=== PATIENT | male | born 1955 | race Caucasian/White ===

== ENCOUNTER 2023-12-26 12:51 | Day surgery (SDC) | payer OTHER ==
[2023-12-22 15:00] LABS: PT Prothrombin Time 10.8 SECONDS (9.5-12.5); Protime INR 0.98
[2023-12-22 15:02] LABS: Absolute Basophils 0.1 K/uL (0-0.5); Absolute Eosinophils 0.1 K/uL (0-0.5); Absolute Lymphocytes (CBC) 1.1 K/uL (0.7-4.9); Absolute Monocytes 0.5 K/uL (0.1-1.3); Absolute Neutrophil 5.5 K/uL (1.8-8.0); Basophils % 0.9 % (0-1.3); Eosinophils % 1.4 % (0-4.4); Hematocrit 44.1 % (39.6-49.0); Hemoglobin 14.9 g/dL (13.6-17.9); Lymphocytes % 15.3 % (15.3-44.8); MCH 34.9 pg (27.0-35.0); MCHC 33.9 g/dL (32.0-36.0); MCV 103.1 fL (80-100); MPV 9.5 fL (7.6-11.3); Monocytes % 7.3 % (3.3-12.3); Neutrophils % 75.1 % (41.7-73.7); Nucleated Red Blood Cells % 0.1 % (0-0); Platelets 222 thou/uL (152-406); RBC Red Blood Cell Count 4.27 M/uL (4.33-5.43); Red Cell Distribution Width 14.2 % (12.1-15.2)
[2023-12-22 15:13] LABS: Anion Gap 9.2 mEq/L (5.0-15.0); Potassium 4.2 mEq/L (3.5-5.1)
--- NOTE | 2023-12-22 20:18 | RAD REPORT ---
EXAM DESCRIPTION: RAD - Chest Pa And Lat (2 Views) - 12/22/2023 2:58 pm CLINICAL HISTORY: pre op for surgery. Hypertension COMPARISON: No Comparisons> TECHNIQUE: PA and lateral views of the chest were obtained. FINDINGS: The lungs are clear. Heart size is normal and central vasculature is within normal limits. No pleural effusion or pneumothorax seen. No acute bony finding noted. IMPRESSION: No acute cardiopulmonary process.
--- NOTE | 2023-12-25 14:26 | EKG ---
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
[2023-12-26] MEDS ORDERED: propofoL 200 MG/20 ML VIAL IV ONE (14:34)
[2023-12-26] MEDS ORDERED: LIDOCAINE 1% MPF 5 ML VIAL ONE (14:34)
[2023-12-26] MEDS ORDERED: MIDAZOLAM HCL 2 MG/2 ML INJ ONE (14:35)
[2023-12-26] MEDS ORDERED: FENTANYL CITR 100 MCG/2 ML ONE (14:35)
[2023-12-26] MEDS ORDERED: ROCURONIUM 50 MG/5 ML VIAL IV ONE (15:22)
[2023-12-26] MEDS ORDERED: EPHEDRINE SULF 50 MG/ML VIAL ONE (16:09)
[2023-12-26] MEDS ORDERED: NS 0.9% VIAL 10 ML ONE (16:12)
[2023-12-26] MEDS ORDERED: Ringers Lactate 1,000 ML IV ONE (16:55)
[2023-12-26] MEDS: PHENAZOPYRIDINE 100MG TAB PO ONE (17:10)
--- NOTE | 2023-12-26 17:11 | RAD REPORT ---
EXAM DESCRIPTION: RAD - Urethrocystogrphy Retrograde - 12/26/2023 5:06 pm CLINICAL HISTORY: LEFT STENT COMPARISON: No comparisons FINDINGS: Total fluoro time: 0.14 minutes
[2023-12-26] MEDS ORDERED: HYDROCODONE/APAP 5/325 MG TAB PO PRN (17:49)
[2023-12-26 18:11] VITALS: BP 143/83; O2SAT 97
[2023-12-26] MEDS ORDERED: PHENAZOPYRIDINE 100MG TAB PO ONE (18:21)
--- NOTE | 2023-12-26 21:31 | OP ---
Surgeon: REINA HORTON Preoperative Diagnoses: 1.Gross hematuria. 2.14 mm left ureterolithiasis. Postoperative Diagnoses: 1.Gross hematuria. 2.14 mm left ureterolithiasis. Principal Procedures: 1.Cystoscopy. 2.Left retrograde pyelography. 3.Left ureteroscopy with pyeloscopy and laser lithotripsy of proximal ureteral calculus displaced in to the renal pelvis. 4.Left ureteral stent placement. Indication For Procedure: Mr. Pascual presented to the [facility] complaining of hematospermia and some gross hematuria. He underwent evaluation including a CT urography, which revealed the presence of a 14 mm proximal obstructing ureteral calculus. He was counseled on the need for timely managemen t of the obstruction, since we did not know how long it had been present, and given the size of the s tone, to prevent further deterioration of his renal function. He presents today for left ureteral st ent placement with the possibility for ureteroscopy and laser lithotripsy. Procedure In Detail: The patient was consented in the preoperative holding area before being transfe rred to the operative suite where general anesthesia was induced. He was given Ancef 2 g IV antimicr obial prophylaxis, and pneumo boots were provided for DVT prophylaxis. He was placed in the lithotom y position, padded and secured to the table appropriately. His genitalia were prepped with Hibiclens and he was draped in standard fashion. The case was begun using a 22-Lebanese rigid cystoscope to tra verse the urethra and enter his bladder with ease. The bladder was surveyed in its entirety, and the re were stone fragments noted dependently within the bladder, but no papillary mucosal lesions were n oted. The detrusor was mildly trabeculated, and on survey of the prostatic fossa, there was some mil d lateral lobar hypertrophy with an elevated median bar, potentially causing a degree of obstruction. I thus identified the left ureteral orifice, which was in orthotopic position and cannulated it usi ng the tip of a 5-Lebanese ureteral access catheter. A retrograde pyelogram was then performed. Left retrograde pyelography: Using a 70:30 mixture of Omnipaque and saline, contrast was injected vi a the lumen of the 5-Lebanese ureteral access catheter and did propagate up the distal into the mid and proximal ureter before entering the renal pelvis and delineating the pelvis and calyces with only si gns of mild pelvocaliectasis. The calculus evident on CT was radiolucent to fluoroscopic imagery. T here was, however, a subtle filling defect that was evident after injection of contrast suggesting th e calculus may be have been displaced out of the UPJ and more centrally within the pelvis. As a resu lt, I passed a Sensor wire via the 5-Lebanese ureteral access catheter and was able to navigate it into the upper pole calyx where it coiled fluoroscopically. I removed the 5-Lebanese ureteral access linus ter and passed over the indwelling Sensor wire a dual-lumen catheter all the way into his renal pelvi s. I then passed a Bentson guidewire via the second lumen of the dual-lumen catheter before removing the dual-lumen catheter and passing over the Bentson guidewire, leaving the Sensor wire as a safety wire outside and I passed a 12 x 14-Lebanese ureteral access sheath, which I was able to navigate all t he way into his proximal ureter. I then navigated the flexible ureteroscope over the Bentson guidewi re and was able to pass it all the way into the renal pelvis where the stone was immediately visualiz ed. I thus utilized a 272 nm laser fiber at power setting of 0.8 joules and 15 hertz initially to be gin to fragment the stone. I eventually increased the power to 1 joule and 15 hertz to continue frag mentation. Because of the significant size of the stone and the fact that it was of a type that esse ntially gave a lot of dust associated with the laser fragmentation, visualization was somewhat challe nging; however, I was able to continue to fragment the stone with some additional effort taken, and c ontinued to fragment it until the entirety of the calculus was largely disrupted. I then continued t o mariya those fragments that were still larger than the laser fiber tip into the upper pole calyx whe re I continued to fragment the pieces of the stone ultimately until most of the fragments were at ju st 1 mm or smaller in size. There was active hematuria throughout from the stone bouncing around on the inside of the mucosa and causing a degree of bleeding, which also contributed to the decreased vi sibility. However, after extensive laser fragmentation performed with a power ultimately increased t o 1.2 joules and 25 hertz, I was able, after an extensive period of time, to essentially confirm that most of the stone had been completely fragmented into dust that was 1 mm or smaller in size. I thus concluded the laser lithotripsy and removed the ureteroscope before then collecting some of the ston e dust material that had emanated from the ureteral access sheath, as there was significant dust mate rial. I then back-loaded the cystoscope over the indwelling safety wire and passed a 6-Lebanese x 26 c m double-J ureteral stent successfully into his upper pole with a coil observed fluoroscopically ther e. A coil was formed cystoscopically visible in the bladder, and I decompressed his bladder of fluid and urine before removing the cystoscope. He was then taken out of the lithotomy position, awakened from general anesthesia, transferred to a stretcher, and then transferred to the recovery room in go od condition. Complications: None. Discharge Disposition: Since the stone is not radio-opaque and given the extensive degree of stone b urden with laser lithotripsy performed on an initial ureteroscopic event, I would like for the patien t to get a CT scan without contrast of the abdomen only prior to followup within the next 3-6 weeks, where if adequate stone fragmentation has been completed, we will plan cystoscopy and left ureteral s tent extraction in the office. If inadequate fragmentation or significant residual stone burden pres ent, followup repeat ureteroscopic intervention with laser lithotripsy may be required. SEDA/DAYA Voice ID: [id number] Report ID: [id number]
== END 2023-12-26 18:47 | disposition home or self-care (01) ==
LOC: OR 12:51
PROVIDERS: ATTEND Urology
PROC: 0T778DZ Dilation of Left Ureter with Intraluminal Device, Via Natural or Artificial Opening Endoscopic (ICD-10-PCS; 2023-12-26)
PROC: 0TF78ZZ Fragmentation in Left Ureter, Via Natural or Artificial Opening Endoscopic (ICD-10-PCS; principal; 2023-12-26 14:30)
DX: N20.1 Calculus of ureter (principal); N13.30 Unspecified hydronephrosis; R31.0 Gross hematuria; I10 Essential (primary) hypertension
CPT/HCPCS: 93005; 85025; 87086; 80048; 36415; 85610; 71046; 74450; 51610; 52356; A4216; J2704; J2001; J2250; J3010; J7120; 82360; 87088; 88300

== ENCOUNTER 2024-04-04 06:50 | Day surgery (SDC) | payer OTHER ==
[2024-03-19 12:00] LABS: Absolute Basophils 0.1 K/uL (0-0.5); Absolute Eosinophils 0.1 K/uL (0-0.5); Absolute Lymphocytes (CBC) 0.8 K/uL (0.7-4.9); Absolute Monocytes 0.4 K/uL (0.1-1.3); Absolute Neutrophil 4.7 K/uL (1.8-8.0); Basophils % 0.8 % (0-1.3); Eosinophils % 1.2 % (0-4.4); Hematocrit 47.6 % (39.6-49.0); Hemoglobin 15.7 g/dL (13.6-17.9); Lymphocytes % 13.9 % (15.3-44.8); MCH 33.6 pg (27.0-35.0); MPV 9.4 fL (7.6-11.3); Monocytes % 7.3 % (3.3-12.3); Neutrophils % 76.8 % (41.7-73.7); Nucleated Red Blood Cells % 0.1 % (0-0); Platelets 184 thou/uL (152-406); RBC Red Blood Cell Count 4.67 M/uL (4.33-5.43); Red Cell Distribution Width 15.2 % (12.1-15.2)
[2024-03-19 12:12] LABS: Anion Gap 6.8 mEq/L (5.0-15.0); Potassium 4.8 mEq/L (3.5-5.1)
[2024-03-19 12:33] LABS: PT Prothrombin Time 10.6 SECONDS (9.5-12.5); Protime INR 0.96
[2024-04-04] MEDS: Ringers Lactate 1,000 ML IV ONE (07:05)
[2024-04-04] MEDS ORDERED: propofoL 200 MG/20 ML VIAL IV ONE (08:18)
[2024-04-04] MEDS ORDERED: LIDOCAINE 1% MPF 5 ML VIAL ONE (08:19)
[2024-04-04] MEDS ORDERED: FENTANYL CITR 100 MCG/2 ML ONE (08:19)
[2024-04-04] MEDS ORDERED: MIDAZOLAM HCL 2 MG/2 ML INJ ONE (08:19)
[2024-04-04] MEDS: Gentamicin Inj 160 MG in NA CHLORIDE 0.9% 100 ML IV SCH (09:09)
[2024-04-04] MEDS ORDERED: NS 0.9% VIAL 30 ML ONE (09:11)
[2024-04-04] MEDS: AMPICILLIN SODIUM 2 GM/VIAL VIAL ONE (09:13)
[2024-04-04] MEDS ORDERED: Phenylephrine HCl 10 MG/ML 1 ML VIAL ONE (09:31)
--- NOTE | 2024-04-04 10:21 | RAD REPORT ---
EXAM DESCRIPTION: RAD - Urethrocystogrphy Retrograde - 04/04/2024 10:11 am CLINICAL HISTORY: STENT PLACEMENT COMPARISON: Urethrocystogrphy Retrograde dated 12/26/2023 FINDINGS: Total fluoro time: 34 seconds
[2024-04-04 10:38] VITALS: O2SAT 97
[2024-04-04] MEDS ORDERED: PHENAZOPYRIDINE 100MG TAB PO ONE (11:06)
[2024-04-04] MEDS ORDERED: HYDROCODONE/APAP 5/325 MG TAB ONE (11:06)
[2024-04-04] MEDS: HYDROCODONE/APAP 5/325 MG TAB PO PRN (11:09)
[2024-04-04] MEDS: PHENAZOPYRIDINE 100MG TAB PO ONE (11:09)
--- NOTE | 2024-04-04 12:08 | OP ---
Surgeon: REINA HORTON Preoperative Diagnoses: 1.Left hydronephrosis. 2.Left nephrolithiasis. 3.History of 14 mm left ureteropelvic junction calculus obstruction with gross hematuria. Postoperative Diagnoses: 1.Left pelvocaliectasis. 2.Left nephrolithiasis. 3.Bladder calculi. 4.No significant ureteral stricture disease observed. Principal Procedures: 1.Cystoscopy with removal of bladder calculi fragments. 2.Left retrograde pyelography. 3.Left ureteroscopy with laser lithotripsy. 4.Left ureteroscopic stone dust washout and removal. 5.Left ureteral tethered 7-Bruneian stent placement. Indication For Procedure: Mr. Pascual presented initially to the Urology Clinic with gross hematuria. He underwent evaluation including a CT urogram and cystoscopy and was found to have a 14 mm calculus obstructing at the UPJ causing hydronephrosis. That stone had been present for an unknown period of time, and after I completed ureteroscopy with laser lithotripsy of that stone successfully, I removed the stent and had him follow up intervally with an ultrasound to ensure absence of hydronephrosis in dicative of stricture disease. Unfortunately, the ultrasound did suggest a degree of hydronephrosis present as well as a calculus still present within the kidney; so, I recommended operative evaluation to rule out stricture disease and to manage it if present, as well as, to eliminate any residual steve al calculi. Procedure In Detail: The patient was consented in the preoperative holding area before being transfe rred to the operative suite where general anesthesia was induced. He was given ampicillin 2 g and ge ntamicin 160 mg IV antimicrobial prophylaxis, and pneumo boots were provided for DVT prophylaxis. He was placed in the lithotomy position, padded and secured to the table appropriately. His genitalia were prepped with Hibiclens and he was draped in standard fashion. The case was begun using a 22-J[facility]on [facility] rigid cystoscope to traverse the urethra and into the bladder with ease. There was some slight m embranous urethral stricture disease that I was able to dilate and surpass using the cystoscope. Upo n entry into the bladder, I noted a large degree of tiny, tiny calculus fragments, which I used the c ystoscope to remove under direct vision and sent for chemical analysis. I then cannulated the left u reteral orifice using a 5-Bruneian ureteral access catheter. Left retrograde pyelography: Using a 70:30 mixture of Omnipaque and saline, contrast was injected vi a the lumen of the 5-Bruneian ureteral access catheter and did propagate up the distal into the mid and proximal ureter where it entered the renal pelvis and delineated the calyces. While there was some mild pelvocaliectasis, no significant area of stricture disease was identified. There was some sligh t narrowing at the UPJ of uncertain significance. As a result, I passed a Sensor wire via the 5-Bruneian ureteral access catheter and coiled it within th e upper pole of the left kidney. I then utilized a dual-lumen catheter to pass over the Sensor wire into the mid proximal ureter and then passed a Bentson guidewire via the second lumen of the dual-lum en catheter coiled alongside the safety wire in the kidney. I then passed the flexible ureteroscope over the Bentson guidewire all the way into the kidney and surveyed the calyces in detail. There was a lot of stone dust, all smaller than the 272 nm laser fiber tip, but 1 fragment was residual at lik kim 4 mm in maximum diameter. Given this shear volume of the stone dust, I passed a Bentson guidewir e via the ureteroscope into the kidney after I surveyed down the proximal ureter just past the UPJ to survey the point of narrowing observed fluoroscopically on retrograde. No significant strictured di sease or scar tissue was appreciated. There was some mild oozing from the mucosa at that location, l ikely from passage of the ureteroscope, but no significant obstruction was appreciable. As a result, I passed the Bentson guidewire via the ureteroscope into the kidney and removed the ureteroscope. I then passed a 12 x 14 Bruneian ureteral access sheath over the Bentson guidewire, leaving the Sensor w reyna out as a safety wire, and I navigated the ureteral access sheath all the way into the renal pelvi s as evidenced fluoroscopically. I then removed the inner cannula and allowed the kidney to decompre ss before passing the flexible ureteroscope back into the kidney and the calices in order to laser li thotripsy the remaining 4 mm calculus and try to evacuate the extensive stone dust present within. I then utilized the 272 nm laser fiber at a power setting of 0.3 joules and 40 hertz to dust the 4 mm residual stone fragments into just the size of the tip of the laser fiber. I then tried to manipulat e the opening of the ureteral access sheath in order to remove all of the calculi fragments to the be st extent possible. I removed the ureteroscope, and attempted to irrigate and aspirate out any stone dust before ultimately removing the ureteral access sheath. I then backloaded the cystoscope over the safety Sensor wire and then passed a 7 Bruneian x 26 cm doubl e-J stent over the wire coiling it within the upper pole calyx of the kidney as evidenced fluoroscopi karly with the coil cystoscopically formed in his bladder. I then decompressed his bladder of fluid and urine and removed the cystoscope. The tether of the stent was then secured to the glans penis us ing Mastisol and Steri-Strips. The patient was then taken out of the lithotomy position, awakened fr om general anesthesia, transferred to a stretcher, and then transferred to the recovery room in good condition. Complications: None. Discharge Disposition: He should be established for a [facility] metabolic profile assessment to be d one no sooner than a month from the date of stent removal, and follow up with me should be establishe d electively, thereafter. As far as his ureteral stent, that may be removed on Monday. He may be gi lisa a dose of Bactrim or Cipro for the stent removal depending on his allergy profile. SEDA/DAYA Voice ID: [id number] Report ID: [id number]
[2024-04-04 12:26] VITALS: BP 124/75; TEMP 97
== END 2024-04-04 12:55 | disposition home or self-care (01) ==
LOC: OR 06:50
PROVIDERS: ATTEND Urology
PROC: 0TC78ZZ Extirpation of Matter from Left Ureter, Via Natural or Artificial Opening Endoscopic (ICD-10-PCS; 2024-04-04)
PROC: 0T778DZ Dilation of Left Ureter with Intraluminal Device, Via Natural or Artificial Opening Endoscopic (ICD-10-PCS; 2024-04-04)
PROC: 0TCB8ZZ Extirpation of Matter from Bladder, Via Natural or Artificial Opening Endoscopic (ICD-10-PCS; principal; 2024-04-04 08:15)
DX: N13.2 Hydronephrosis with renal and ureteral calculous obstruction (principal); N21.0 Calculus in bladder
CPT/HCPCS: 36415; 51610; 74450; 80048; 82360; 85025; 85610; 87086; 87088; 88300; A4216; J0290; J1580; J2001; J2250; J2371; J2704; J3010; J7120